=== PATIENT | female | born 1990 | race Caucasian/White ===

== ENCOUNTER → 2020-08-26 | Outpatient (CLI) | payer OTHER ==
--- NOTE | 2020-08-26 09:53 | REP ---
INDICATION: THYROID ENLARGEMENT COMPARISON: None. TECHNIQUE: Li scale and color evaluation of the thyroid gland using the linear high frequency transducer. FINDINGS: The thyroid gland is heterogeneous and enlarged. Isthmus measures 5.2 mm in width. Right lobe measures 5.5 x 1.6 x 1.8 cm and includes 9.5 x 5.5 x 5.1 mm complex midpole cyst with nodule. Left lobe measures 5.4 x 3.4 x 2.4 cm and is dominated by a complex hypervascular ovoid nodule measuring 3.8 x 3.4 x 2.1 cm with scattered cystic changes and calcifications. IMPRESSION: 1. Large complex nodule in the left lobe warrants further investigation. 2. Smaller complex nodule in the right lobe is indeterminate. <Electronically signed by Mihir Ruggiero > 08/26/20 [id number]
== END ==
LOC: M RAD 09:11
PROVIDERS: ATTEND Family Medicine
DX: E04.2 Nontoxic multinodular goiter (principal)

== ENCOUNTER → 2020-09-05 | Outpatient (REF) | payer OTHER | LOC: M LAB REF 14:52 | PROVIDERS: ATTEND Otolaryngology | DX: E04.1 Nontoxic single thyroid nodule (principal) ==

== ENCOUNTER → 2020-12-04 | Outpatient (CLI) | payer OTHER ==
[~2020-12-04] MED LIST: IBUP200C89 PO
== END ==
LOC: M LABSMTC 12:17
PROVIDERS: ATTEND Anesthesiology
DX: Z11.52 Encounter for screening for COVID-19 (principal)

== ENCOUNTER → 2020-12-07 | Outpatient (CLI) | payer OTHER ==
--- NOTE | 2020-12-07 14:52 | ECGEPIP ---
[facility] Test Date: 2020-12-07 Pat Name: LEXY SULLIVAN Department: Room: - Gender: Female Program [employer]ide Group Work: STEVEN : 1990 Requested By: MONO Zayas Order Number: [id number] Reading MD: Omar Clemens Measurements Intervals [place] Rate: 66 P: 8 CA: 152 QRS: 2 QRSD: 98 T: 21 QT: 394 QTc: 413 Interpretive Statements Normal sinus rhythm with sinus arrhythmia Incomplete RBBB Within normal limits for age Electronically Signed on 12-07-2020 14:52:07 EDT by Omar Clemens
== END ==
LOC: M EKG 13:35
PROVIDERS: ATTEND Otolaryngology
DX: Z01.818 Encounter for other preprocedural examination (principal); Z79.899 Other long term (current) drug therapy

== ENCOUNTER → 2020-12-08 | Outpatient (CLI) | payer OTHER ==
--- NOTE | 2020-12-08 12:07 | REP ---
INDICATION: NONTOXIC SINGLE THYROID NODULE COMPARISON: None. TECHNIQUE: PA and lateral. FINDINGS: The mediastinum and cardiac silhouette are normal. The lung allen are clear and without acute consolidation, effusion, or pneumothorax. The skeletal structures are intact and normal. IMPRESSION: No acute cardiopulmonary process. <Electronically signed by Mihir Ruggiero > 12/08/20 [id number]
== END ==
LOC: M RAD 11:46
PROVIDERS: ATTEND Otolaryngology
DX: E04.1 Nontoxic single thyroid nodule (principal)

== ENCOUNTER 2020-12-09 06:13 | Day surgery (SDC) | payer OTHER ==
[~2020-12-09] VITALS: Ht 149.9 cm; Wt 56.2 kg
[2020-12-09 06:24] VITALS: BP 113/66
[2020-12-09] MEDS ORDERED: LR 1,000 ML IV ONE (07:00)
[2020-12-09] MEDS ORDERED: LIDOCAINE 2% 100MG/5ML SDV (FOR ANES.) As Ordered ONE (07:09)
[2020-12-09] MEDS ORDERED: fentaNYL 100 MCG/2 ML INJECTION (J3010) As Ordered ONE (07:09)
[2020-12-09] MEDS ORDERED: propofoL 200 MG/20 ML VIAL As Ordered ONE (07:09)
[2020-12-09] MEDS ORDERED: SUCCINYLCHOLINE 100 MG/5 ML SYRINGE (J0330) As Ordered ONE (07:09)
[2020-12-09] MEDS ORDERED: MIDAZOLAM INJ 2MG/2ML VIAL (J2250 PER 1MG) As Ordered ONE (07:09)
[2020-12-09] MEDS ORDERED: BACITRACIN OINTMENT 30GM TUBE As Ordered ONE (07:16)
[2020-12-09] MEDS ORDERED: LIDOCAINE W/EPINEPHRINE 1% 20ML VIAL As Ordered ONE (07:16)
== END 2020-12-09 07:30 | disposition home or self-care (01) ==
LOC: M SDC 06:13
PROVIDERS: ATTEND Otolaryngology
DX: Z53.8 Procedure and treatment not carried out for other reasons (principal)

== ENCOUNTER → 2021-06-05 | Outpatient (CLI) | payer OTHER | LOC: M LABSMTC 09:27 | PROVIDERS: ATTEND Anesthesiology | DX: Z01.812 Encounter for preprocedural laboratory examination (principal); Z20.822 Contact with and (suspected) exposure to COVID-19 ==

== ENCOUNTER → 2021-07-28 | Outpatient (REF) | payer OTHER ==
[2021-07-28 12:28] LABS: APPEARANCE, URINE HAZY (CLEAR); BACTERIA, URINE AUTO NEGATIVE (NEGATIVE); BILIRUBIN, URINE AUTO NEGATIVE (NEGATIVE); BLOOD, URINE BLOOD NEGATIVE (NEGATIVE); COLOR, URINE YELLOW (YELLOW); GLUCOSE, URINE (UA) AUTO NEGATIVE (NEGATIVE); KETONE, URINE AUTO TRACE mg/dL (NEGATIVE); LEUKOCYTE ESTERASE, URINE AUTO NEGATIVE (NEGATIVE); MUCUS, URINE SMALL (NEGATIVE); NITRITE, URINE AUTO NEGATIVE (NEGATIVE); PROTEIN, URINE AUTO 2+ mg/dL (NEGATIVE); RBC, URINE AUTO 2 /HPF (0-3); SQUAMOUS EPITHELIAL CELL UR AU 1 /HPF (0-6); UROBILINOGEN, URINE AUTO 0.2 mg/dL (0.0-2.0); WBC, URINE AUTO 4 /HPF (0-3)
== END ==
LOC: M LAB REF 12:03
PROVIDERS: ATTEND Obstetrics & Gynecology
DX: N39.0 Urinary tract infection, site not specified (principal)

== ENCOUNTER → 2022-01-01 | Outpatient (CLI) | payer OTHER | LOC: M LABSMTC 09:29 | PROVIDERS: ATTEND Anesthesiology | DX: Z01.812 Encounter for preprocedural laboratory examination (principal); Z20.822 Contact with and (suspected) exposure to COVID-19 ==

== ENCOUNTER → 2022-12-08 | Outpatient (CLI) | payer OTHER ==
[2022-12-08 15:32] LABS: PTH INTACT 59.4 PG/ML (18.5-88.0)
[2022-12-08 15:35] LABS: FREE T3 3.9 PG/ML (2.3-4.2); FREE T4 1.22 NG/DL (0.89-1.76); THYROID STIMULATING HORMONE 0.758 uIU/ML (0.55-4.78)
== END ==
LOC: M RAD 13:57
PROVIDERS: ATTEND Otolaryngology
DX: E04.2 Nontoxic multinodular goiter (principal); R13.10 Dysphagia, unspecified

== ENCOUNTER 2023-06-21 08:21 | Day surgery (SDC) | payer OTHER ==
[~2023-06-21] VITALS: Ht 149.9 cm; Wt 51.5 kg
[2023-06-21] MEDS ORDERED: LR 1,000 ML IV SCH ×2 (08:40→14:35)
[2023-06-21 09:15] LABS: HEMATOCRIT 35.3 % (36.0-47.0); MEAN CORPUSCULAR HEMOGLOBIN 25.1 pg (27.0-33.0); MEAN CORPUSCULAR HGB CONC 31.2 g/dl (32.0-36.5); MEAN CORPUSCULAR VOLUME 80.4 fl (80.0-96.0); PLATELET COUNT, AUTOMATED 352 10^3/uL (150-450); RED BLOOD COUNT 4.39 10^6/uL (4.00-5.40)
[2023-06-21 09:42] LABS: BLOOD UREA NITROGEN 10 MG/DL (9-23); CALCIUM LEVEL 8.9 MG/DL (8.5-10.1); CARBON DIOXIDE LEVEL 24 MMOL/L (20-31); CHLORIDE LEVEL 106 MMOL/L (98-107); CREATININE FOR GFR 0.68 MG/DL (0.55-1.30); GLOMERULAR FILTRATION RATE > 60.0 (>60); GLUCOSE, FASTING 102 MG/DL (60-100); POTASSIUM SERUM 3.8 MMOL/L (3.5-5.1); SODIUM LEVEL 139 MMOL/L (136-145)
[2023-06-21] MEDS ORDERED: LIDOCAINE 2% 100MG/5ML SDV (FOR ANES.) As Ordered ONE (09:43)
[2023-06-21] MEDS ORDERED: ONDANSETRON 4MG 2ML VIAL As Ordered ONE (09:43)
[2023-06-21] MEDS ORDERED: MIDAZOLAM INJ 2MG/2ML VIAL As Ordered ONE (09:43)
[2023-06-21] MEDS ORDERED: propofoL 200 MG/20 ML VIAL As Ordered ONE ×2 (09:43→10:55)
[2023-06-21] MEDS ORDERED: dexmedeTOMIDine (4MCG/ML)200MCG/50ML BTL (PRECEDEX) As Ordered ONE (09:43)
[2023-06-21] MEDS ORDERED: fentaNYL 250 MCG/5 ML INJECTION As Ordered ONE (09:43)
[2023-06-21] MEDS ORDERED: METOCLOPRAMIDE INJ 10MG/2ML VIAL As Ordered ONE (09:43)
[2023-06-21] MEDS ORDERED: LIDOCAINE W/EPINEPHRINE 1% 20ML VIAL As Ordered ONE (10:25)
[2023-06-21] MEDS ORDERED: ACETAMINOPHEN 1000MG 100ML IV BAG As Ordered ONE (10:57)
[2023-06-21] MEDS ORDERED: ePHEDrine SULFATE 25 MG/5 ML(5MG/ML) SYRINGE As Ordered ONE (10:59)
[2023-06-21] MEDS ORDERED: PHENYLephrine 500MCG 5ML (100MCG/ML) SYRINGE As Ordered ONE (11:00)
[2023-06-21] MEDS ORDERED: DESFLURANE 240 ML INHALANT As Ordered ONE (13:04)
[2023-06-21] MEDS ORDERED: fentaNYL 100 MCG/2 ML INJECTION IV PRN (14:20)
[2023-06-21] MEDS ORDERED: ONDANSETRON 4MG 2ML VIAL IV PRN (14:20)
[2023-06-21] MEDS ORDERED: HYDROMORPHONE HCL 0.5 MG/ 0.5 ML SYRINGE IV PRN (14:20)
[2023-06-21] MEDS ORDERED: oxyCODONE 5MG TAB PO PRN (14:20)
[2023-06-21] MEDS ORDERED: METOCLOPRAMIDE INJ 10MG/2ML VIAL IV PRN (15:00)
[2023-06-21] MEDS ORDERED: PROMETHAZINE 25MG/ML 1ML VIAL IV ONE (15:10)
[2023-06-21] MEDS ORDERED: PROMETHAZINE 25MG/ML 1ML VIAL IV PRN (15:10)
[2023-06-21 16:25] VITALS: BP 118/68; TEMP 97.9; O2SAT 97
== END 2023-06-21 16:48 | disposition home or self-care (01) ==
LOC: M SDC 08:21
PROVIDERS: ATTEND Otolaryngology
DX: D34 Benign neoplasm of thyroid gland (principal); R13.10 Dysphagia, unspecified; F17.290 Nicotine dependence, other tobacco product, uncomplicated
CPT/HCPCS: 36415; 60220; 80048; 81025; 85027; 88307; J0131; J1100; J2250; J2371; J2405; J2550; J2765; J3010

== ENCOUNTER 2023-08-24 20:29 | Emergency (ER) | payer OTHER ==
[~2023-08-24] VITALS: Ht 149.9 cm; Wt 52.4 kg
[2023-08-24 22:03] LABS: RSV AMPLIFICATION NEGATIVE (NEGATIVE)
[2023-08-24 22:06] LABS: BASO # 0.1 10^3/uL (0.0-0.2); EOS # 0.2 10^3/uL (0.0-0.5); EOS % 2.6 % (0.0-3.0); HEMATOCRIT 32.1 % (36.0-47.0); HEMOGLOBIN 10.1 g/dl (12.0-15.5); LYMPH # 2.3 10^3/uL (1.5-5.0); LYMPH % 38.3 % (24.0-44.0); MEAN CORPUSCULAR HEMOGLOBIN 25.4 pg (27.0-33.0); MEAN CORPUSCULAR HGB CONC 31.5 g/dl (32.0-36.5); MEAN CORPUSCULAR VOLUME 80.9 fl (80.0-96.0); MONO # 0.6 10^3/uL (0.0-0.8); MONO % 9.9 % (2.0-8.0); NEUTROPHILS # 2.9 10^3/uL (1.5-8.5); PLATELET COUNT, AUTOMATED 332 10^3/uL (150-450); RED BLOOD COUNT 3.97 10^6/uL (4.00-5.40); WHITE BLOOD COUNT 6.1 10^3/uL (4.0-10.0)
[2023-08-24 22:27] LABS: BLOOD UREA NITROGEN 10 MG/DL (9-23); CALCIUM LEVEL 8.7 MG/DL (8.5-10.1); CARBON DIOXIDE LEVEL 24 MMOL/L (20-31); CHLORIDE LEVEL 106 MMOL/L (98-107); CK-MB VALUE MASS < 1.0 NG/ML (<3.6); CPK CREATINE PHOSPHOKINASE 117 U/L (34-145); CREATININE FOR GFR 0.69 MG/DL (0.55-1.30); GLOMERULAR FILTRATION RATE > 60.0 (>60); GLUCOSE, FASTING 98 MG/DL (60-100); MB/CK RELATIVE INDEX 0.85 (< OR =4); POTASSIUM SERUM 3.7 MMOL/L (3.5-5.1); SODIUM LEVEL 137 MMOL/L (136-145)
[2023-08-24 22:29] LABS: THYROID STIMULATING HORMONE 4.231 uIU/ML (0.55-4.78)
[2023-08-25] MEDS ORDERED: KETOROLAC 30 MG/ML 1ML VIAL IV ONE (06:25)
[2023-08-25 07:23] LABS: CK-MB VALUE MASS < 1.0 NG/ML (<3.6)
[2023-08-25 07:25] LABS: CPK CREATINE PHOSPHOKINASE 75 U/L (34-145); MB/CK RELATIVE INDEX 1.33 (< OR =4)
[2023-08-25] MEDS ORDERED: IBUP-1022 PO (07:57)
[2023-08-25 08:17] VITALS: BP 100/58; TEMP 98.3; O2SAT 100
== END 2023-08-25 08:15 | disposition home or self-care (01) ==
LOC: M ED 20:29
DX: R07.9 Chest pain, unspecified (principal); I45.10 Unspecified right bundle-branch block; Z79.1 Long term (current) use of non-steroidal anti-inflammatories (NSAID)
CPT/HCPCS: 71045; 80048; 82550; 82553; 84443; 85025; 85379; 87631; 93005; 93041; 94760; 96374; 99285; J1885